=== PATIENT | male | born 1955 | race Caucasian/White ===

== ENCOUNTER 2020-09-04 15:10 | Emergency (ER) | payer MEDICARE ==
[2020-09-04] MEDS ORDERED: diphenhydrAMINE 50 MG/ML VIAL ONE (15:14)
[2020-09-04] MEDS ORDERED: Boostrix 0.5 ML (Tdap) VIAL ONE (15:17)
[2020-09-04] MEDS ORDERED: Fentanyl 100 MCG/2 ML VIAL ONE (15:21)
[2020-09-04 15:44] LABS: Actual Bicarbonate (HCO3a) 13.8 mEq/L (22-28); Analyzer IN Cardio ER; Base Excess (BEa) -13.8 mEq/L (-2.0 to +3.0); CO2 Tension 37.8 mmHg (35.0-45.0); Calcium, Ionized (arterial) 1.18 mmol/L (1.12-1.30); Carboxyhemoglobin (COHb) 0.5 gm% (0.0-3.0); Hemoglobin (Hb) 14.8 g/dL (14.0-18.0); O2 Tension (PaO2), arterial 74.5 mmHg (> 80.0); Puncture Site RRA; pH, Arterial 7.18 (7.35-7.45)
[2020-09-04] MEDS ORDERED: fentaNYL Citrate/PF 2,000 MCG in Sodium Chloride 0.9% 60 ML IV SCH (15:45)
[2020-09-04] MEDS ORDERED: DISCONTINUE PREVIOUS NARCOTIC PAIN MEDICATIONS AND BENZODIAZEPINES FS SCH (15:45)
[2020-09-04 16:05] LABS: #Basophils 0.1 thou/uL (0.0-0.2); #Eosinphils 0.1 thou/uL (0.0-0.7); #Lymphocytes 4.4 thou/uL (1.20-3.40); #Monocytes 1.1 thou/uL (0.11-0.59); #Neutrophils 13.6 thou/uL (1.40-6.50); %Basophils 0.3 % (0.0-1.0); %Eosinophils 0.8 % (0.0-10.0); %Lymphocytes 22.9 % (21.0-51.0); %Monocytes 5.5 % (0.0-10.0); %Neutrophils 70.5 % (42.0-75.0); Hemoglobin 15.3 g/dL (14.0-18.0); Mean Corpuscular HGB CONC 33.5 g/dL (32.0-36.0); Mean Corpuscular Hemoglobin 32.3 pg (27.0-31.0); Mean Corpuscular Volume 96.3 fL (78.0-98.0); Platelet Count 275 thou/uL (130-400); RBC Distribution Width 11.9 % (11.5-14.5); Red Blood Cell (RBC) Count 4.74 mill/uL (4.70-6.10); White Blood Cell (WBC) Count 19.3 thou/uL (4.8-10.8)
[2020-09-04 16:13] LABS: INR-International Normal Ratio 1.2; Prothrombin Time 15.5 sec (12.0-14.7)
[2020-09-04 16:14] LABS: PTT 46.7 sec (22.9-36.1)
[2020-09-04 16:31] LABS: ALT (SGPT) 44 U/L (8-55); AST (SGOT) 39 U/L (5-34); Albumin 4.2 g/dL (3.4-4.8); Alkaline Phosphatase 54 U/L (40-110); Anion Gap 21 mmol/L (10-20); BUN (Urea Nitrogen) 20 mg/dL (8.4-25.7); Bilirubin, Total 1.1 mg/dL (0.2-1.2); Calc. Creatinine Clearance 0 mL/min (70-130); Calcium 8.9 mg/dL (7.8-10.44); Carbon Dioxide 13 mmol/L (23-31); Chloride 107 mmol/L (98-107); Globulin 2.6 g/dL (2.4-3.5); Glucose 221 mg/dL (80-115); Potassium 3.3 mmol/L (3.5-5.1); Protein, Total 6.8 g/dL (5.8-8.1); Sodium 138 mmol/L (136-145)
[2020-09-04 16:40] LABS: Bilirubin Negative (Negative); Blood, Urine 1+ (Negative); Clarity Clear (Clear); Glucose, Urine (Dipstick) 50 mg/dL (Negative); Ketone, Urine Trace mg/dL (Negative); Leukocyte Negative Leu/uL (Negative); Nitrite Negative (Negative); Protein, Urine (Dipstick) 100 mg/dL (Neg-Trace); Specific Gravity, Urine 1.021 (1.002-1.036); Squamous Epithelial 0-3 HPF (0-3); Urobilinogen Normal mg/dL (Less than 2); WBC/HPF 0-3 HPF (0-3); pH, Urine 5.5 (5.0-9.0)
[2020-09-04 16:44] LABS: Bacteria/HPF 1+ HPF (None Seen); Yeast-Budding 1+ HPF (None Seen)
[2020-09-04] MEDS ORDERED: Midazolam HCl 2 mg/2 ml Vial ONE (16:55)
== END 2020-09-04 18:06 | disposition short-term general hospital (02) ==
LOC: ERS 15:10
DX: T63.441A Toxic effect of venom of bees, accidental (unintentional), initial encounter (principal); E87.2 Acidosis; E11.9 Type 2 diabetes mellitus without complications; Z87.891 Personal history of nicotine dependence
CPT/HCPCS: 31500; 36600; 51702; 71045; 80053; 82805; 83605; 84484; 85025; 85610; 85730; 90471; 90715; 93005; 96365; 96366; 96375; 96376; 99291; J3010; 36415; 81003; 81015; J1200; J2250; J3490

== ENCOUNTER 2021-03-23 07:46 | Outpatient (CLI) | payer MEDICARE | END 2021-03-23 07:47 | disposition home or self-care (01) | LOC: MRI 07:46 | PROVIDERS: ATTEND Neurological Surgery | DX: M47.26 Other spondylosis with radiculopathy, lumbar region (principal); M48.061 Spinal stenosis, lumbar region without neurogenic claudication; M43.16 Spondylolisthesis, lumbar region; M51.16 Intervertebral disc disorders with radiculopathy, lumbar region; M48.07 Spinal stenosis, lumbosacral region | CPT/HCPCS: 72148 ==